=== PATIENT | male | born 1970 | race African-American/Black ===

== ENCOUNTER 2019-06-29 21:23 | Emergency (ER) | payer SELFPAY ==
[~2019-06-29] VITALS: Ht 182.9 cm; Wt 106.0 kg
[2019-06-29] MEDS ORDERED: SODIUM CHLORIDE 0.9% 1,000 ML IV ONE (23:58)
[2019-06-29] MEDS ORDERED: ONDANSETRON HCL 4MG/2ML INJ IV STA (23:58)
[2019-06-30 01:30] LABS: BASOPHILS % 0.8 % (0.0-2.0); EOSINOPHILS % 0.2 % (0.0-5.0); HEMOGLOBIN. 14.1 g/dL (14.0-18.0); LYMPHOCYTES % 26.5 % (20.0-50.0); MEAN CORPUSCULAR HEMOGLOBIN 27.4 pg (28.0-32.0); MEAN CORPUSCULAR VOLUME 83.6 fL (80.0-94.0); MEAN PLATELET VOLUME 9.3 fl (7.4-10.4); MONOCYTES % 3.2 % (2.0-8.0); NEUTROPHILS % 69.3 % (40.0-76.0); PLATELET 167 x1000/uL (130-400); RED BLOOD CELL COUNT 5.15 mill/uL (4.7-6.1); RED CELL DISTRIBUTION WIDTH 15.1 % (11.6-14.6)
[2019-06-30 01:37] LABS: CHLORIDE 107 mEq/L (98-107)
[2019-06-30 01:45] LABS: ETHANOL BLOOD 186 mg/dL
[2019-06-30 01:49] LABS: CREATINE KINASE 296 IU/L (39-308)
[2019-06-30 01:52] LABS: CREATINE KINASE MB FRACTION 1.4 ng/mL (0.5-3.6)
[2019-06-30 02:27] LABS: *AMPHETAMINES SCREEN URINE NEGATIVE (NEGATIVE); *BARBITURATES SCREEN URINE NEGATIVE (NEGATIVE); *BENZODIAZEPINES SCREEN URINE NEGATIVE (NEGATIVE); *COCAINE SCREEN URINE NEGATIVE (NEGATIVE)
[2019-06-30 02:28] LABS: CANNABINOID URINE SCREEN NEGATIVE (NEGATIVE); METHADONE URINE SCREEN NEGATIVE (NEGATIVE); OPIATES URINE SCREEN NEGATIVE (NEGATIVE); PHENCYCLIDINE URINE SCREEN NEGATIVE (NEGATIVE)
[2019-06-30 04:59] VITALS: BP 124/76
== END 2019-06-30 05:30 | disposition home or self-care (01) ==
LOC: ER 21:23
DX: F10.129 Alcohol abuse with intoxication, unspecified (principal); Y90.6 Blood alcohol level of 120-199 mg/100 ml
CPT/HCPCS: 36415; 80053; 80305; 80320; 82550; 82553; 83690; 84443; 84484; 85025; 93005; 96361; 96374; 99283; J2405; J7030; G0480